=== PATIENT | male | born 1955 | race Caucasian/White ===

== ENCOUNTER 2021-01-18 10:26 | Emergency (ER) | payer OTHER, SELFPAY ==
[2021-01-18 10:40] VITALS: BP 109/58; PULSE 70; RESP 16; TEMP 35.8; O2SAT 100
--- NOTE | 2021-01-18 11:06 | ED.WOUNDLAC ---
HPI - Wound/Laceration General Chief Complaint: Wound/Laceration Stated Complaint: Laceration on left hand Time Seen by Provider: 01/18/21 11:05 Source: patient Mode of arrival: ambulatory Limitations: no limitations History of Present Illness HPI narrative: Chet Leone is a 65-year-old male with a medical history including high cholesterol, GERD, DM, graft who got a 1 cm laceration across the right wrist with a clean piece of aluminum while working on a roof, has not been able to keep area from bleeding intermittently. Here for laceration repair Related Data Home Medications Medication Instructions Recorded Confirmed aspirin 81 mg tablet,delayed 81 mg PO DAILY 10/11/20 01/18/21 release Allergies Allergy/AdvReac Type Severity Reaction Status Date / Time No Known Allergies Allergy Mild Verified 01/18/21 10:50 Review of Systems Review of Systems: Narrative: CONSTITUTIONAL: Denies fever, chills, sweats. EYES: Denies visual changes, redness, discharge. ENT: Denies rhinorrhea, congestion, sore throat, otalgia. CARDIOVASCULAR: Denies chest pain, palpitations, edema. RESPIRATORY: Denies dyspnea, wheezing, cough GASTROINTESTINAL: Denies abdominal pain, nausea, vomiting, diarrhea. GENITOURINARY: Denies dysuria, hematuria, abnormal discharge SKIN: Denies rash or itching. Laceration on dorsum right wrist NEUROLOGIC: Denies numbness, or focal weakness. PSYCHIATRIC: Denies anxiety or depression. [facility] Past Medical History Medical History Acromioclavicular (joint) (ligament) sprain Closed compression fracture of third lumbar vertebra Closed nondisplaced fracture of body of right scapula with routine healing Closed nondisplaced fracture of head of right radius with routine healing GERD (gastroesophageal reflux disease) High cholesterol History of fracture of clavicle HTN (hypertension) Shoulder pain, right Traumatic tear of right rotator cuff Family History Family History Mother Hypertension Family history of chronic obstructive pulmonary disease Social History Social History Smoking packs per day: 1 Smoking cigarettes per day: 20.0 Years smoked: 20 Smoking pack-years: 20.00 Smoking status: Former smoker Smoking end date: 08/04/98 Alcohol intake: never Comments At time of signature, I agree with nursing past medical, surgical, social and family history. There is no relevant family history pertinent to the presenting complaint. Exam Narrative: Exam Narrative: GENERAL: This is a well-nourished, well-developed patient, in mild distress. HEAD: normocephalic, atraumatic. EYES: Sclera clear/white. Vision is grossly intact. EARS: External ears normal,. Hearing grossly intact. NOSE: External nose normal without nasal discharge, nares without redness, no rhinorrhea. THROAT: Mucous membranes moist, NECK: Neck supple, CARDIOVASCULAR: Regular rate and rhythm without murmurs, gallops, or rubs. RESPIRATORY: Clear to auscultation. Breath sounds equal bilaterally. No wheezes, rales, or rhonchi. GASTROINTESTINAL: Abdomen soft, SKIN: warm, intact with laceration dorsum of right wrist about 1 cm NEURO: awake, alert, and oriented to person, place and time. There were no obvious focal neurologic abnormalities. Steady gait EXTREMITIES: Normal range of motion. BACK: Nontender without deformity Course Course Emergency Course: Patient here with laceration dorsum of right wrist Lac repair done-refused admission Follow-up for suture removal Vital Signs Vital signs: Vital Signs Temperature 96.4 F L 01/18/21 10:40 Pulse Rate 70 01/18/21 10:40 Respiratory Rate 16 01/18/21 10:40 Blood Pressure 109/58 L 01/18/21 10:40 Pulse Oximetry 100 01/18/21 10:40 Temperature 96.4 F L 01/18/21 10:40 Pulse Rate 70 01/18/21 1
== END 2021-01-18 11:33 | disposition home or self-care (01) ==
PROVIDERS: Emergency Provider Nurse Practitioner; PCP Internal Medicine
DX: S61.511A Laceration without foreign body of right wrist, initial encounter (principal); W26.8XXA Contact with other sharp object(s), not elsewhere classified, initial encounter; Z87.891 Personal history of nicotine dependence; K21.9 Gastro-esophageal reflux disease without esophagitis; I10 Essential (primary) hypertension; E78.00 Pure hypercholesterolemia, unspecified; E11.9 Type 2 diabetes mellitus without complications; Z79.82 Long term (current) use of aspirin
CPT/HCPCS: 12001; 99212; G0463

== ENCOUNTER 2025-01-22 13:07 | Emergency (ER) | payer MEDICARE, SELFPAY ==
--- NOTE | 2025-01-22 13:09 | ED_ITS ---
HPI - Extremity Injury (Upper) General Chief Complaint: Extremity Injury, Upper Stated Complaint: Right Thumb Injury Time Seen by Provider: 01/22/25 13:08 Source: patient Mode of arrival: ambulatory Limitations: no limitations Related Data Home Medications ?Medication ?Instructions ?Recorded ?Confirmed ?Last Taken ?Type aspirin 81 mg tablet,delayed 81 mg PO DAILY 10/11/20 09/07/24 Unknown History release (Enteric Coated Aspirin) Allergies Allergy/AdvReac Type Severity Reaction Status Date / Time No Known Allergies Allergy Mild Verified 01/22/25 13:08 [facility] Past Medical History Medical History (Updated 09/07/24 @ 14:32 by PASQUALE Romano) BMI 21.0-21.9, adult GERD (gastroesophageal reflux disease) High cholesterol HTN (hypertension) History of fracture of clavicle Traumatic tear of right rotator cuff Shoulder pain, right Acromioclavicular (joint) (ligament) sprain Closed compression fracture of third lumbar vertebra Closed nondisplaced fracture of head of right radius with routine healing Closed nondisplaced fracture of body of right scapula with routine healing Family History Family History (Updated 09/07/24 @ 14:33 by PASQUALE Romano) Mother Hypertension Family history of chronic obstructive pulmonary disease Cancer Acute myocardial infarction Father , MVC No problems noted. Sibling No problems noted. Social History Social History (Updated 09/07/24 @ 14:34 by PASQUALE Romano) Smoking packs per day: 1 Smoking cigarettes per day: 20.0 Years smoked: 20 Smoking pack-years: 20.00 Smoking status: Former smoker Second hand tobacco smoke exposure: Yes Smoking end date: 08/04/98 Alcohol intake: current Substance use: never Substance use type: does not use Do You Feel Safe in your Home?: Yes Lack of Transportation: No Lack of Food: Never True Current Housing: I Have Housing Concerned About Future Housing: No Difficulty Paying Gas/Electric Bills: No Difficulty Paying for Meds: No Currently Unemployed: No Education: Trade/Vocational Certificate Difficulty w/ Childcare or Family Care: No Living arrangements: with family Occupation/Education: occupation Additional occupation/education comments: [employer] Gender identity (if verbalized by the patient): Male Comments At the time of my signature, I reviewed and agree with the nursing past medical, surgical, social, and family history. There is no relevant family history pertinent to the patient complaint. Course Course Emergency Course: Portions of this record may have been created with voice recognition software. Level of Care: Express Care Visit Vital Signs Vital signs: Vital signs reviewed Discharge Plan Discharge Patient Language: Surinamese Prescriptions: No Action aspirin [Enteric Coated Aspirin] 81 mg tablet,delayed release (DR/EC) 81 mg PO DAILY atorvastatin 20 mg tablet See Rx Instructions .ROUTE .COMPLEX Qty: 90 1RF Dose Instruction: Take 1 tablet by mouth once daily Rx Instructions: Take 1 tablet by mouth once daily losartan 25 mg tablet 25 mg PO DAILY Qty: 30 5RF methylprednisolone [Medrol (Albert)] 4 mg tablets,dose pack See Rx Instructions PO PER PKG DIR Qty: 21 0RF Rx Instructions: PO PER PKG DIR albuterol sulfate [Ventolin HFA] 90 mcg/actuation HFA aerosol inhaler 2 inh inhalation Q4H PRN (Reason: shortness of breath or wheezing) Qty: 8.5 0RF clopidogrel [Plavix] 75 mg tablet 75 mg PO DAILY Qty: 30 5RF Follow-up/Referrals: Tam Jimenez DO [Primary Care Provider] - Quality NIHSS Nursing Documentation ED NIHSS nursing documentation: reviewed/agree
[2025-01-22 13:16] VITALS: BP 144/71; PULSE 68; RESP 20; TEMP 36.8; O2SAT 95
--- NOTE | 2025-01-22 13:18 | ED_ITS ---
HPI - Wound/Laceration General Chief Complaint: Wound/Laceration Stated Complaint: Right Thumb Injury Time Seen by Provider: 01/22/25 13:08 Source: patient Mode of arrival: ambulatory Limitations: no limitations History of Present Illness HPI narrative: Chet is a 69-year-old male patient presenting to the clinic today with complaints of a left thumb/hand injury. He reports he fell when he tripped over some wood pellets that were in his garage and hit the left side of his head. Has a small contusion to the left side of his head. Does take Plavix. Denies any headache, visual changes, dizziness, or discomfort. He states the main reason he is here because he has a laceration to the webbing of the right thumb/2nd index finger. Bleeding is controlled at this time. Tetanus is not up-to-date. Denies any loss of consciousness or neck pain. Related Data Home Medications ?Medication ?Instructions ?Recorded ?Confirmed ?Last Taken ?Type aspirin 81 mg tablet,delayed 81 mg PO DAILY 10/11/20 09/07/24 Unknown History release (Enteric Coated Aspirin) Allergies Allergy/AdvReac Type Severity Reaction Status Date / Time No Known Allergies Allergy Mild Verified 01/22/25 13:08 Review of Systems Review of Systems: Pertinent positives per HPI. Patient denies any fever, chills, rash, headache, visual changes, dizziness, cough, runny nose, sore throat, shortness of breath, chest pain, palpitations, nausea, vomiting, diarrhea, constipation, abdominal pain, or any urinary issues. [facility], [facility] Past Medical History Medical History BMI 21.0-21.9, adult GERD (gastroesophageal reflux disease) High cholesterol HTN (hypertension) History of fracture of clavicle Traumatic tear of right rotator cuff Shoulder pain, right Acromioclavicular (joint) (ligament) sprain Closed compression fracture of third lumbar vertebra Closed nondisplaced fracture of head of right radius with routine healing Closed nondisplaced fracture of body of right scapula with routine healing Family History Family History Mother Hypertension Family history of chronic obstructive pulmonary disease Cancer Acute myocardial infarction Father , MVC No problems noted. Sibling No problems noted. Social History Social History Smoking packs per day: 1 Smoking cigarettes per day: 20.0 Years smoked: 20 Smoking pack-years: 20.00 Smoking status: Former smoker Second hand tobacco smoke exposure: Yes Smoking end date: 08/04/98 Alcohol intake: current Substance use: never Substance use type: does not use Do You Feel Safe in your Home?: Yes Lack of Transportation: No Lack of Food: Never True Current Housing: I Have Housing Concerned About Future Housing: No Difficulty Paying Gas/Electric Bills: No Difficulty Paying for Meds: No Currently Unemployed: No Education: Trade/Vocational Certificate Difficulty w/ Childcare or Family Care: No Living arrangements: with family Occupation/Education: occupation Additional occupation/education comments: [employer] Gender identity (if verbalized by the patient): Male Comments At the time of my signature, I reviewed and agree with the nursing past medical, surgical, social, and family history. There is no relevant family history pertinent to the patient complaint. Exam Narrative: General: Well-developed, well nourished, in no apparent distress Head: Normocephalic, small contusion to the left forehead Eyes: Pupils equally round and reactive to light bilaterally, EOM intact, sclera and conjunctive clear, no discharge, lids normal Ears: TMs intact and clear, ear canals clear, no drainage, grossly hearing n ormal. Nose: Nares patent, no discharge, no inflammation, no sinus tenderness. Mouth: Oropharynx without lesions or masses, good dentition, MMM. Tongue midline, even rise and fall of uvula Neck: Supple, trachea midline, no enlargement of anterior or posterior cervical nodes, no thyroid masses or goiter palpable. Cardio: Regular rate and rhythm, s1 and s2 normal, no murmur appreciated. Resp: Clear to auscultation bilaterally anteriorly and posteriorly, no rhonchi, rales, wheezing or rubs Musculoskeletal: No deformity, non-tender to palpation, grossly normal range of motion, muscle strength strong and equal, peripheral pulse strong, no edema, no cyanosis, normal gait and station Neuro: Alert and oriented x4 with normal speech, no focal deficits, cranial nerves I through XII intact, muscle strength 5 out of 5, sensation intact bilaterally Integumentary: [place], warm, and dry, 3 cm flap laceration to the right dorsal skin webbing between the right thumb and right index finger, bleeding controlled Course Course Emergency Course: Portions of this record may have been created with voice recognition software. Level of Care: Express Care Visit Vital Signs Vital signs: Vital Signs Temperature 36.8 C 01/22/25 13:16 Pulse Rate 68 01/22/25 13:16 Respiratory Rate 20 01/22/25 13:16 Blood Pressure 144/71 H 01/22/25 13:16 Pulse Oximetry 95 01/22/25 13:16 Oxygen Delivery Room Air 01/22/25 13:16 Temperature 36.8 C 01/22/25 13:16 Pulse Rate 68 01/22/25 13:16 Respiratory Rate 20 01/22/25 13:16 Blood Pressure 144/71 H 01/22/25 13:16 Pulse Oximetry 95 01/22/25 13:16 Oxygen Delivery Room Air 01/22/25 13:16 Vital signs reviewed Procedures Laceration Laceration 1: Date: 01/22/25 Site: hand Side (If applicable): right Size (cm): 3 Description: flap and irregular Depth: simple, single layer Local Anesthetic: lidocaine 1% and with epi Amount of anesthesia used (mL): 2 Pre-repair: wound explored, irrigated and irrigated extensively ====== Skin Level ====== Skin layer closed with: nylon Size (cm): 5-0 Number of sutures: 6 Technique: simple, interrupted ====== Subcutaneous Layer ====== ====== Muscle Layer ====== ====== Tendon Layer ====== Dressing: Verbal consent obtained for laceration repair. Risk and benefits explained and patient voiced understanding. Area was cleansed with Techni care and a 27 gauge needle was then used to instill (2) ml of 1% lidocaine with epi into the wound edges. Area was prepped and draped using sterile technique. A 5-0 suture on a p needle was used to place (6) interrupted sutures bringing the wound edges together- well approximated. Patient tolerated procedure well. Sterile dressing applied. MDM - Wound/Laceration MDM Narrative Medical decision making narrative: At the time of visit patient is resting comfortably on the exam table. Patient appears to be nontoxic. Medications: Tdap 0.5 mL IM Procedures: Laceration repair was performed using 1% lidocaine with epi. Wound was closed using 5- 0 Ethilon suture. Wound edges brought to well approximate. Plan: I suspect patient has a head contusion and laceration to the right hand. Laceration repair was performed in the clinic and patient tolerated well. Closed head injury instructions was given to the patient. Patient denies any headache, dizziness, visual changes, or neurological changes at this time. Supportive measures were discussed with the patient and they voiced understanding discharge instructions and agrees to treatment plan. Return precautions reviewed Differential Diagnosis Differential diagnosis: Likely laceration, abscess, abrasion, avulsion of skin and other (Ground level fall, contusion, brain bleed, skull fracture) Discharge Plan Discharge Clinical Impression: Contusion of head Qualifiers: Encounter type: initial encounter Contusion of head detail: other part of head Qualified Code(s): S00.83XA - Contusion of other part of head, initial encounter Laceration of hand Qualifiers: Encounter type: initial encounter Foreign body presence: without foreign body Laterality: left Qualified Code(s): S61.412A - Laceration without foreign body of left hand, initial encounter Patient Disposition: Home Condition: Stable Instructions: Antibiotic Form, Laceration (ED), Head Injury (ED), Contusion in Adults (ED) Additional Instructions: Closed head injury instructions: Tylenol as needed for headache for the first 24 hours then may take Ibuprofen, Increase fluids and stay well hydrated. Avoid taking any sedative medications such as muscle relaxers, benadryl, benzos, or narcotic pain medication. Watch for red flag symptoms such as confusion, lethargy, nausea/vomiting, worsening of headache, visual changes, increase in dizziness, or any stroke-like symptoms. If these symptoms develop go to the Emergency Room immediately. Reduce stimuli- lights, computers, video games, smart phones, tv, and noise over the next 2 days. Increase stimuli gradually. If headache worsens with stimuli reduce stimuli to tolerable level. Follow up with your PCP in 5- 7 days if symptoms persist as post-concussion syndrome treatment may need to be initiated. Laceration discharge instructions: Leave bandage on for 24 hours then may remove and apply band aide covering as needed. Keep wound clean and dry Skin sutures out in 7-10 days. Watch for signs and symptoms of infection- redness, streaking, swelling, purulent discharge, or increase in pain. Follow up with your PCP for suture removal or return to the Express care. Patient Language: Russian Prescriptions: No Action aspirin [Enteric Coated Aspirin] 81 mg tablet,delayed release (DR/EC) 81 mg PO DAILY atorvastatin 20 mg tablet See Rx Instructions .ROUTE .COMPLEX Qty: 90 1RF Dose Instruction: Take 1 tablet by mouth once daily Rx Instructions: Take 1 tablet by mouth once daily losartan 25 mg tablet 25 mg PO DAILY Qty: 30 5RF albuterol sulfate [Ventolin HFA] 90 mcg/actuation HFA aerosol inhaler 2 inh inhalation Q4H PRN (Reason: shortness of breath or wheezing) Qty: 8.5 0RF clopidogrel [Plavix] 75 mg tablet 75 mg PO DAILY Qty: 30 5RF Follow-up/Referrals: Tam Jimenez DO [Primary Care Provider] - Time of Disposition: 13:47 Quality NIHSS Nursing Documentation ED NIHSS nursing documentation: reviewed/agree
[2025-01-22] MEDS: TETANUS,DIPHTHERIA,AC PERTUSSIS ADULT (0.5 ML) BOOSTRIX IM (13:26)
[2025-01-22] MEDS: LIDO 1%/EPINEPHRINE 1:100,000 20 ML VIAL INFILTRATE (13:28)
== END 2025-01-22 13:50 | disposition home or self-care (01) ==
PROVIDERS: Emergency Provider Nurse Practitioner Family; PCP Internal Medicine
DX: S00.83XA Contusion of other part of head, initial encounter (principal); W18.09XA Striking against other object with subsequent fall, initial encounter; S61.411A Laceration without foreign body of right hand, initial encounter; Z23 Encounter for immunization; I10 Essential (primary) hypertension; E78.00 Pure hypercholesterolemia, unspecified; K21.9 Gastro-esophageal reflux disease without esophagitis; Z87.891 Personal history of nicotine dependence
CPT/HCPCS: 12002; 90471; 90715; 99212; G0463; J2004